=== PATIENT | female | born 1945 | race Caucasian/White ===

== ENCOUNTER → 2017-06-26 | Outpatient (CLI) | payer MEDICARE, OTHER ==
[~2017-06-26] MED LIST: ACET325 PO; ALBU90OI INH; ALBU90OI6 INH; AMIT25 PO; ATEN25 PO; CALCAVITDA PO; CEFP200 PO; CODGUAEL PO; CYCL10 PO; DESL5 PO; DESLORATADINE PO; ERGO400 PO; ERYT.5TO BOTHEYES; Excedrin Extra1 EACH PO; FEXO60 PO; FLUT44OIA IH; FLUTICASONE 50MCG; GABA300 PO; GLIP10 PO; GLIP5 PO; HYDACE5 PO; HYDACE5325; HYDCHL25 PO; INSULANPEN SC; LEVFLO250 PO; LISHYD1012; LISHYD1012 PO; LOPE2C PO; LOVA20 PO; MELA3 PO; METF500 PO; MULVITA PO; NORFLEX PO; PANT40 PO; PIOG15 PO; PIOG45 PO; POLY500; POTA8 PO; QVAR7.3 G1 IH; ROPI1 PO; Rutin500 MG PO; SACC250C PO; SITA100T2; SITA100T2 PO; SULI150 PO; TOLT4 PO; Zithromax250 MG PO; [UNRECOGNIZED DRUG - REMARK]; [UNRECOGNIZED DRUG - REMARK] INH
== END | disposition home or self-care (01) ==
LOC: LAB 08:20
DX: N39.0 Urinary tract infection, site not specified (principal)
CPT/HCPCS: 87077; 87086; 87186

== ENCOUNTER → 2017-07-09 | Outpatient (CLI) | payer MEDICARE, OTHER ==
[2017-07-09 11:22] LABS: Source, Urine Clean Catch
[2017-07-09 13:36] LABS: Bilirubin, Urine Neg (Neg); Blood, Urine Neg (Neg); Glucose Qualitative, Urine Neg (Neg); Ketones, Urine Neg (Neg); Leukocyte Esterase, Urine Neg (Neg); Nitrite, Urine Neg (Neg); Protein, Urine Neg (Neg); Specific Gravity, Urine 1.015 (1.003-1.022); Urobilinogen, Urine NORM (Normal); pH, Urine 6.5 (5.0-8.0)
[2017-07-09 13:58] LABS: Appearance, Urine Clear (Clear); Color, Urine Yellow (P-Yellow)
== END ==
LOC: LAB 11:10
PROVIDERS: Physician Assistant
DX: N39.0 Urinary tract infection, site not specified (principal)
CPT/HCPCS: 81003

== ENCOUNTER → 2017-08-14 | Outpatient (CLI) | payer MEDICARE | END | disposition home or self-care (01) | LOC: LAB SHORT 11:16 → PLD 11:16 | DX: C44.321 Squamous cell carcinoma of skin of nose (principal) | CPT/HCPCS: 88305 ==

== ENCOUNTER → 2018-01-22 | Outpatient (CLI) | payer MEDICARE ==
[2018-01-22 17:40] LABS: Appearance, Urine Hazy (Clear); Bilirubin, Urine Neg (Neg); Blood, Urine 3+ (Neg); Color, Urine Yellow (P-Yellow); Glucose Qualitative, Urine 4+ (Neg); Ketones, Urine Neg (Neg); Leukocyte Esterase, Urine 3+ (Neg); Nitrite, Urine Neg (Neg); Protein, Urine 2+ (Neg); Specific Gravity, Urine 1.015 (1.003-1.022); Urobilinogen, Urine NORM (Normal)
[2018-01-22 18:25] LABS: Squamous Epithelial Cells Few /hpf (Few); White Blood Cells, Urine 50-100 /hpf (0-5)
[2018-01-22 18:26] LABS: Bacteria Many /hpf
== END ==
LOC: LAB SHORT 17:00 → LAB 17:00
PROVIDERS: Nurse Practitioner Family
DX: R30.0 Dysuria (principal)
CPT/HCPCS: 81001; 87077; 87086; 87186

== ENCOUNTER 2018-07-04 12:52 | Emergency (ER) | payer MEDICARE, OTHER ==
[~2018-07-04] VITALS: Ht 160 cm; Wt 108.0 kg
[2018-07-04] MEDS ORDERED: BENZ100A PO (13:20)
== END 2018-07-04 13:39 | disposition home or self-care (01) ==
LOC: ER 12:52
DX: J11.1 Influenza due to unidentified influenza virus with other respiratory manifestations (principal); E11.9 Type 2 diabetes mellitus without complications; Z87.891 Personal history of nicotine dependence; Z79.899 Other long term (current) drug therapy; Z79.4 Long term (current) use of insulin
CPT/HCPCS: 99283; J1100

== ENCOUNTER 2018-10-05 08:19 | Emergency (ER) | payer MEDICARE, OTHER ==
[~2018-10-05] VITALS: Ht 160 cm; Wt 106.6 kg
[~2018-10-05 08:19] MED LIST changes: +BENZ100A PO; +ROPI.25 PO; -ROPI1 PO
[2018-10-05] MEDS ORDERED: NOVOLOG FL100 UNIT/1 (09:27)
[2018-10-05] MEDS ORDERED: MYRBETRIQ50 MG PO (09:27)
[2018-10-05] MEDS ORDERED: AMLO5 PO (09:27)
[2018-10-05] MEDS ORDERED: Flovent 110 MCG12 GM INH (09:28)
[2018-10-05] MEDS ORDERED: Calcium + Vita1 EACH PO (09:28)
[2018-10-05] MEDS ORDERED: Rutin500 MG PO (09:29)
[2018-10-05] MEDS ORDERED: Multivitamin1 EAC1 PO (09:29)
[2018-10-05] MEDS ORDERED: IBUP400 PO (10:55)
[2018-10-05] MEDS ORDERED: Cyclobenzaprine5 MG PO (10:55)
== END 2018-10-05 11:12 | disposition home or self-care (01) ==
LOC: ER 08:19
DX: M54.5 Low back pain (principal); G89.29 Other chronic pain; E11.9 Type 2 diabetes mellitus without complications; Z87.891 Personal history of nicotine dependence
CPT/HCPCS: 96372; 99283-25; J1885

== ENCOUNTER → 2018-11-03 | Outpatient (CLI) | payer MEDICARE, OTHER ==
[~2018-11-03] MED LIST changes: +AMLO10 PO; +AMLO5 PO; +Calcium + Vita1 EACH PO; +Cyclobenzaprine5 MG PO; +DETROL LA PO; +Flovent 110 MCG12 GM INH; +IBUP400 PO; +INSULIN NOVOLOG; +LACTOSE PO; +MAGNESIUM PO; +MYRBETRIQ50 MG PO; +Multivitamin1 EAC1 PO; +NOVOLOG FL100 UNIT/1; +Percocet 5-3251 EACH PO; +Tylenol325 MG PO; +ZESTORETIC 20-1 EACH PO
== END | disposition home or self-care (01) ==
LOC: LAB SHORT 10:10 → PLD 10:10
DX: D22.5 Melanocytic nevi of trunk (principal); D22.61 Melanocytic nevi of right upper limb, including shoulder
CPT/HCPCS: 88305

== ENCOUNTER → 2019-02-03 | Outpatient (CLI) | payer MEDICARE, OTHER ==
[2019-02-03 20:08] LABS: Creatinine, Urine Random 93.7 mg/dL (27.00-270.00)
[2019-02-03 20:11] LABS: Microalb/Creat Ratio UR, Rand 14.835 mg/g (0.000-30.000); Microalbumin, Random Urine 13.9 mg/L (0.000-20.000)
== END | disposition home or self-care (01) ==
LOC: LAB 17:35 → LAB SHORT 17:35
PROVIDERS: Nurse Practitioner Family
DX: E11.42 Type 2 diabetes mellitus with diabetic polyneuropathy (principal)
CPT/HCPCS: 82043; 82570

== ENCOUNTER 2019-02-09 14:41 | Observation (INO) | payer MEDICARE, OTHER ==
[~2019-02-09] VITALS: Ht 160 cm; Wt 104.9 kg
[~2019-02-09 14:41] MED LIST changes: -Percocet 5-3251 EACH PO; -Tylenol325 MG PO
--- NOTE | 2019-02-10 09:15 | NUR ---
Ambulatory in Day Surgery History, Chart, Medications and Allergies reviewed before start of procedure.Lungs clear T/O to Auscultation. Patient confirms NPO status and agrees with scheduled surgery. Patient reports completing Chlorhexadine shower X2 prior to admission to hospital.Surgical site prepped with 2% Chlorhexidine cloth wipe.
--- NOTE | 2019-02-11 | NUR ---
ASSUMING CARE OF PT AT THIS TIME. REPORT RECEIVED FROM RAMA HAMMER.
--- NOTE | 2019-02-11 04:26 | NUR ---
OWN CLOTHES.WILL TRY AGAIN LATER
--- NOTE | 2019-02-11 06:35 | NUR ---
SHIFT SUMMARY: PT POD#1 FOR LEFT FOOT AND ANKLE REPAIR. NON WEIGHT BEARING TO LLE. STANDING UP TO GET TO BSC WITH 1-2 MOD ASSIST. VOIDING WELL. PAIN MANAGED WITH PERCOCET PER EMAR. MEDICATED ONCE. BLOOD GLUCOSE >300. COVERED WITH LOW SS PER EMAR. SALINE LOCKED. PLAN FOR SNF AFTER DISCHARGE.
--- NOTE | 2019-02-11 17:38 | NUR ---
SHIFT SUMMARY PT POD 1. LLE IN SPLINT W/REHAN WRAP-C/D/I. WIGGLES TOES, CAP REFILL WNL. MEDICATED WITH 2 PERCOCET 5/325MG ONCE THIS SHIFT. NWB LLE, 1-2 ASSIST W/FWW TO BSC. UP WITH PT THIS SHIFT. PLAN IS TO DC HOME TOMORROW.
--- NOTE | 2019-02-12 04:51 | NUR ---
SHIFT SUMMARY: PT S/P L ANKLE/FOOT REPAIR. PAIN MANAGED WITH 1-2 PERCOCET PER EMAR. GETTING TO BSC WITH 1 ASSIST. VOIDING WELL. LAZARUS REG DIET. BG >300. COVERED WITH LOW SS AND METFORMIN PER EMAR. DENIES N/T. WIGGLES TOES. CAP REFILL WNL. POSSIBLE DISCHARGE TODAY.
--- NOTE | 2019-02-12 09:03 | NUR ---
02/12/19 0903 Purvi Ignacio VERIFICATIONS: EDIT STAFF.
--- NOTE | 2019-02-12 11:00 | NUR ---
BIOX 88% AT REST WHEN PHYSICAL THERAPY IN TO EVALUATE PATIENT, OXYGEN APPLIED AT 1 LITER
--- NOTE | 2019-02-12 11:10 | NUR ---
BIOX 95% ON 1 LITER
--- NOTE | 2019-02-12 17:48 | NUR ---
SUMMARY PATIENT REPORTS GOOD PAIN CONTROL WITH PO MEDS. PATIENT UP TO BEDSIDE COMMODE WITH ASSIST TO VOID. PATIENTS WILL BE IN IN THE MORNING TO WORK WITH PHYSICAL THERAPY. LAZARUS PO FOOD AND FLUID WITHOUT NAUSEA. PATIENT USING IS INDEPENDENTLY, DENIES SOB
[2019-02-13 04:54] LABS: BASOPHILS ABSOLUTE AUTO 0.01 K/mm3 (0.00-0.23); BASOPHILS PERCENT AUTO 0 % (0-2); EOSINOPHILS ABSOLUTE AUTO 0.05 K/mm3 (0.00-0.68); EOSINOPHILS PERCENT AUTO 1 % (0-6); Hematocrit 35.9 % (33.0-51.0); Hemoglobin 11.2 g/dL (11.5-16.0); IMMATURE GRAN ABSOLUTE AUTO 0.01 K/mm3 (0.00-0.10); IMMATURE GRAN PERCENT AUTO 0 % (0-1); LYMPHOCYTES ABSOLUTE AUTO 1.76 K/mm3 (0.84-5.20); LYMPHOCYTES PERCENT AUTO 30 % (21-46); MONOCYTES ABSOLUTE AUTO 0.77 K/mm3 (0.16-1.47); MONOCYTES PERCENT AUTO 13 % (4-13); Mean Corpuscular HGB 32.9 pg (26.0-34.0); Mean Corpuscular HGB Conc 31.2 g/dL (31.5-36.5); Mean Corpuscular Volume 106 fL (80-100); Mean Platelet Volume 8.9 fL (9.1-12.4); NEUTROPHILS ABSOLUTE AUTO 3.37 K/mm3 (1.96-9.15); NEUTROPHILS PERCENT AUTO 56 % (41-73); Platelet Count 191 K/mm3 (150-400); RDW Coefficient Variation 13.8 % (11.7-14.2); RDW Standard Deviation 53.2 fL (35.1-46.3); White Blood Cell Count 5.97 K/mm3 (4.00-11.30)
[2019-02-13] MEDS ORDERED: Tylenol325 MG PO (12:13)
[2019-02-13] MEDS ORDERED: Percocet 5-3251 EACH PO (12:18)
--- NOTE | 2019-02-13 13:00 | NUR ---
[facility] TRANSPORT HOME ARRANGED WITH [facility] TRANSPORT. SPOKE WITH DISPATCH AT [facility] REGARDING PT'S WEIGHT OF 104.9KG. [facility] WAS NOTIFIED THAT PT HAS 5 STEPS TO GET INTO HER HOME, AND WOULD NEED TO BE TRANSPORTED UP THOSE STEPS SHE IS UNABLE TO NAVIGATE THEM.
--- NOTE | 2019-02-13 14:35 | NUR ---
CLARIFIED WITH DR. DWYER THAT PT DOES NOT NEED BLOOD THINNER UPON DISCHARGE. DR. DWYER REPORTED PT DOES NOT NEED A BLOOD THINNER FOR HOME AT THIS TIME.
--- NOTE | 2019-02-13 16:57 | NUR ---
DISCHARGE PT PROVIDED WITH WRITTEN AND VERBAL DISCHARGE INSTRUCTIONS; SHE REPORTED UNDERSTANDING AFTER QUESTIONS WERE ANSWERED. SHE WAS PROVIDED WITH WRITTEN SCRIPTS. PT ALERT AND ORIENTED AT TIME OF TRANSPORT. TRANSPORTER WAS NOTIFIED OF THE PATIENTS WEIGHT AND THE 5 STEPS INTO HER HOME THAT SHE WOULD NEED TO BE LIFTED UP, PRIOR TO PT LEAVING.
== END 2019-02-13 16:50 | disposition home or self-care (01) ==
LOC: SURS 02-10 08:31 → PRE IP 02-10 08:31 → SURS 02-10 08:32 → PRE IP 02-10 10:30 → SURS 02-10 14:18
PROVIDERS: Internal Medicine; Podiatrist Foot & Ankle Surgery; ADMIT Family Medicine
PROC: 0SGJ04Z Fusion of Left Tarsal Joint with Internal Fixation Device, Open Approach (ICD-10-PCS; principal; 2019-02-10 10:30)
PROC: 0L8P0ZZ Division of Left Lower Leg Tendon, Open Approach (ICD-10-PCS; principal; 2019-02-10 10:30)
DX: M21.42 Flat foot [pes planus] (acquired), left foot (principal); M21.6X2 Other acquired deformities of left foot; E78.5 Hyperlipidemia, unspecified; E11.42 Type 2 diabetes mellitus with diabetic polyneuropathy; G25.81 Restless legs syndrome; E66.9 Obesity, unspecified; J45.909 Unspecified asthma, uncomplicated; Z79.899 Other long term (current) drug therapy; Z87.891 Personal history of nicotine dependence; Z88.8 Allergy status to other drugs, medicaments and biological substances
CPT/HCPCS: 36415; 71046; 82947; 85025; 94640; 94760; 96372; 96375; 97110; 97162; 97166; 97530; 97535; A9270; C1713; C1769; G0378; J0690; J1100; J1650; J1815; J2250; J2370; J2405; J2704; J3010; J7030; J7120

== ENCOUNTER → 2019-10-13 | Outpatient (CLI) | payer MEDICARE, OTHER ==
[~2019-10-13] MED LIST changes: +Percocet 5-3251 EACH PO; +Tylenol325 MG PO
== END | disposition home or self-care (01) ==
LOC: LAB SHORT 12:14 → LAB 12:14
DX: C44.41 Basal cell carcinoma of skin of scalp and neck (principal)
CPT/HCPCS: 88305

== ENCOUNTER → 2019-10-13 | Outpatient (CLI) | payer MEDICARE, OTHER | LOC: LAB SHORT 14:40 → LAB 14:40 | DX: A49.9 Bacterial infection, unspecified (principal) | CPT/HCPCS: 87070; 87077; 87186; 87205 ==

== ENCOUNTER → 2020-02-14 | Outpatient (CLI) | payer MEDICARE, OTHER ==
[2020-02-14 20:20] LABS: Creatinine, Urine Random 78.2 mg/dL (27.00-270.00)
[2020-02-14 20:22] LABS: Microalb/Creat Ratio UR, Rand 58.824 mg/g (0.000-30.000)
== END ==
LOC: LAB SHORT 15:58 → LAB 15:58
PROVIDERS: Nurse Practitioner Family
DX: E11.40 Type 2 diabetes mellitus with diabetic neuropathy, unspecified (principal)
CPT/HCPCS: 82043; 82570

== ENCOUNTER → 2020-05-07 | Outpatient (CLI) | payer MEDICARE, OTHER ==
[2020-05-07 13:13] LABS: BASOPHILS ABSOLUTE AUTO 0.03 K/mm3 (0.00-0.23); BASOPHILS PERCENT AUTO 0 % (0-2); EOSINOPHILS PERCENT AUTO 1 % (0-6); Hematocrit 41.4 % (33.0-51.0); IMMATURE GRAN ABSOLUTE AUTO 0.03 K/mm3 (0.00-0.10); IMMATURE GRAN PERCENT AUTO 0 % (0-1); LYMPHOCYTES ABSOLUTE AUTO 1.58 K/mm3 (0.84-5.20); LYMPHOCYTES PERCENT AUTO 17 % (21-46); MONOCYTES ABSOLUTE AUTO 0.76 K/mm3 (0.16-1.47); MONOCYTES PERCENT AUTO 8 % (4-13); Mean Corpuscular HGB 32.9 pg (26.0-34.0); Mean Corpuscular HGB Conc 31.4 g/dL (31.5-36.5); Mean Corpuscular Volume 105 fL (80-100); Mean Platelet Volume 9.2 fL (9.1-12.4); NEUTROPHILS ABSOLUTE AUTO 6.71 K/mm3 (1.96-9.15); NEUTROPHILS PERCENT AUTO 73 % (41-73); Platelet Count 269 K/mm3 (150-400); RDW Coefficient Variation 14.5 % (11.7-14.2); RDW Standard Deviation 56.3 fL (35.1-46.3); Red Blood Cell Count 3.95 M/mm3 (3.80-5.20); White Blood Cell Count 9.21 K/mm3 (4.00-11.30)
[2020-05-07 13:27] LABS: Alanine Aminotransfer (ALT/SGP 20 U/L (12-78); Albumin, Blood 3.2 g/dL (3.4-5.0); Albumin/Globulin Ratio 0.6 (0.8-1.8); Alk Phos 94 U/L (50-136); Anion Gap 7 mmol/L (6-16); Aspartate Aminotrans (AST/SGOT 14 U/L (12-37); Bilirubin, Total 0.4 mg/dL (0.1-1.0); Blood Urea Nitrogen 23 mg/dL (8-24); Bun/Creatinine Ratio 29.8 (12.0-20.0); CO2, Blood 27 mmol/L (21-32); Chloride, Blood 103 mmol/L (98-108); Creatinine, Blood 0.77 mg/dL (0.40-1.00); Glomerular Filtration Rate >60 (60-); Glucose, Blood 158 mg/dL (70-99); Potassium, Blood 3.9 mmol/L (3.5-5.5); Sodium, Blood 137 mmol/L (136-145); Total Protein, Blood 8.2 g/dL (6.4-8.2)
== END | disposition home or self-care (01) ==
LOC: LAB 11:50 → LAB SHORT 11:50
PROVIDERS: Family Medicine
DX: R10.9 Unspecified abdominal pain (principal)
CPT/HCPCS: 80053; 83690; 85025; 87077; 87086; 87186

== ENCOUNTER 2020-07-02 00:31 | Emergency (ER) | payer MEDICARE, OTHER ==
[~2020-07-02] VITALS: Ht 160 cm; Wt 106.1 kg
== END 2020-07-02 01:09 | disposition home or self-care (01) ==
LOC: ER 00:31
DX: T15.91XA Foreign body on external eye, part unspecified, right eye, initial encounter (principal); E11.9 Type 2 diabetes mellitus without complications; Z79.4 Long term (current) use of insulin; Z79.899 Other long term (current) drug therapy; Z87.891 Personal history of nicotine dependence
CPT/HCPCS: 99282

== ENCOUNTER → 2020-10-04 | Outpatient (CLI) | payer MEDICARE, OTHER | END | disposition home or self-care (01) | LOC: LAB 11:15 → LAB SHORT 11:15 | DX: D22.71 Melanocytic nevi of right lower limb, including hip (principal); D48.5 Neoplasm of uncertain behavior of skin | CPT/HCPCS: 88305 ==

== ENCOUNTER → 2020-10-09 | Outpatient (CLI) | payer MEDICARE, OTHER | END | disposition home or self-care (01) | LOC: LAB SHORT 14:54 → LAB 14:54 | DX: R30.0 Dysuria (principal) | CPT/HCPCS: 87077; 87086; 87186 ==

== ENCOUNTER → 2021-03-19 | Outpatient (CLI) | payer MEDICARE, OTHER ==
[2021-03-19 15:30] LABS: Source, Urine Clean Catch
[2021-03-19 17:26] LABS: Bilirubin, Urine Neg (Neg); Blood, Urine 1+ (Neg); Glucose Qualitative, Urine Neg (Neg); Ketones, Urine Neg (Neg); Leukocyte Esterase, Urine 3+ (Neg); Nitrite, Urine Neg (Neg); Protein, Urine Neg (Neg); Urobilinogen, Urine NORM (Normal)
[2021-03-19 17:51] LABS: Appearance, Urine Cloudy (Clear); Color, Urine Pale Yellow (P-Yellow)
[2021-03-19 17:54] LABS: Squamous Epithelial Cells Few /hpf (Few)
[2021-03-19 17:57] LABS: Bacteria Many /hpf; White Blood Cells, Urine 25-50 /hpf (0-5)
[2021-03-19 17:58] LABS: Calcium Oxalate Crystals Few /hpf
== END | disposition home or self-care (01) ==
LOC: LAB SHORT 15:26 → LAB 15:26
PROVIDERS: Student in an Organized Health Care Education/Training Program
DX: R30.0 Dysuria (principal)
CPT/HCPCS: 81001; 87077; 87086; 87186

== ENCOUNTER → 2021-11-06 | Outpatient (CLI) | payer MEDICARE, OTHER | END | disposition home or self-care (01) | LOC: LAB SHORT 09:28 → LAB 09:28 | DX: R30.0 Dysuria (principal) | CPT/HCPCS: 87077; 87086; 87186 ==

== ENCOUNTER → 2021-11-19 | Outpatient (CLI) | payer MEDICARE, OTHER | LOC: EDSTATUS 09:30 → LAB 13:30 → LAB SHORT 13:30 | DX: R30.0 Dysuria (principal) | CPT/HCPCS: 87077; 87086; 87186 ==

== ENCOUNTER → 2022-01-14 | Outpatient (CLI) | payer MEDICARE, OTHER ==
[2022-01-17 13:10] LABS: M-SPIKE, % 42.1 % (Not Observed); M-SPIKE, MG/24 HR 48 mg/24 hr (Not Observed); PROTEIN,TOTAL,URINE 6.4 mg/dL (Not Estab.)
== END | disposition home or self-care (01) ==
LOC: LAB 10:40 → LAB SHORT 10:40
PROVIDERS: Internal Medicine Hematology & Oncology
DX: D47.2 Monoclonal gammopathy (principal)
CPT/HCPCS: 81050

== ENCOUNTER 2022-03-03 02:06 | Emergency (ER) | payer MEDICARE, OTHER ==
[~2022-03-03] VITALS: Ht 160 cm; Wt 95.2 kg
== END 2022-03-03 07:22 | disposition home or self-care (01) ==
LOC: ER 02:06
DX: S02.2XXA Fracture of nasal bones, initial encounter for closed fracture (principal); S00.83XA Contusion of other part of head, initial encounter; S80.02XA Contusion of left knee, initial encounter; S80.01XA Contusion of right knee, initial encounter; E11.9 Type 2 diabetes mellitus without complications; Z79.899 Other long term (current) drug therapy; Z79.4 Long term (current) use of insulin; Z87.891 Personal history of nicotine dependence; W18.30XA Fall on same level, unspecified, initial encounter
CPT/HCPCS: 70486; 73562-LT; 73562-RT; 96372; 99284-25; A9270; J1885

== ENCOUNTER 2022-03-31 04:55 | Inpatient (IN) | payer MEDICARE, OTHER ==
[~2022-03-31] VITALS: Ht 160 cm; Wt 97.1 kg
[2022-03-31 05:38] LABS: BASOPHILS ABSOLUTE AUTO 0.02 K/mm3 (0.00-0.23); BASOPHILS PERCENT AUTO 0 % (0-2); EOSINOPHILS ABSOLUTE AUTO 0.02 K/mm3 (0.00-0.68); EOSINOPHILS PERCENT AUTO 0 % (0-6); Hematocrit 40.6 % (33.0-51.0); Hemoglobin 13.2 g/dL (11.5-16.0); IMMATURE GRAN PERCENT AUTO 1 % (0-1); LYMPHOCYTES PERCENT AUTO 24 % (21-46); MONOCYTES ABSOLUTE AUTO 1.32 K/mm3 (0.16-1.47); MONOCYTES PERCENT AUTO 11 % (4-13); Mean Corpuscular HGB 33.3 pg (26.0-34.0); Mean Corpuscular HGB Conc 32.5 g/dL (31.5-36.5); Mean Corpuscular Volume 103 fL (80-100); NEUTROPHILS ABSOLUTE AUTO 7.47 K/mm3 (1.96-9.15); NEUTROPHILS PERCENT AUTO 64 % (41-73); NRBC ABSOLUTE 0.17 K/mm3 (0.00-0.02); NRBC Auto 1.4 /100 WBC (0.0-0.2); Platelet Count 260 K/mm3 (150-400); RDW Coefficient Variation 15.9 % (11.7-14.2); RDW Standard Deviation 60.3 fL (35.1-46.3); Red Blood Cell Count 3.96 M/mm3 (3.80-5.20); White Blood Cell Count 11.73 K/mm3 (4.00-11.30)
[2022-03-31 05:49] LABS: Magnesium, Blood 1.9 mg/dL (1.6-2.4)
[2022-03-31 05:50] LABS: Albumin, Blood 2.9 g/dL (3.4-5.0); Albumin/Globulin Ratio 0.7 (0.8-1.8); Bilirubin, Total 0.3 mg/dL (0.1-1.0); Bun/Creatinine Ratio 25.9 (12.0-20.0); Calcium, Blood 9.5 mg/dL (8.5-10.1); Creatinine, Blood 0.96 mg/dL (0.40-1.00); Total Protein, Blood 6.9 g/dL (6.4-8.2)
[2022-03-31 06:23] LABS: International Normalized Ratio 0.93; Prothrombin Time Results 9.8 Sec (9.7-11.5)
[2022-03-31 08:38] LABS: Source, Urine Clean Catch
[2022-03-31 08:50] LABS: Bilirubin, Urine Neg (Neg); Blood, Urine Neg (Neg); Glucose Qualitative, Urine Neg (Neg); Ketones, Urine Neg (Neg); Leukocyte Esterase, Urine 2+ (Neg); Nitrite, Urine Pos (Neg); Protein, Urine Neg (Neg); Specific Gravity, Urine 1.015 (1.003-1.022); Urobilinogen, Urine NORM (Normal)
[2022-03-31 08:58] LABS: Appearance, Urine Hazy (Clear); Bacteria Mod /hpf; Color, Urine Yellow (P-Yellow); Red Blood Cells, Urine 0-2 /hpf (0-2); Squamous Epithelial Cells Rare /hpf (Few)
--- NOTE | 2022-03-31 11:28 | NUR ---
PT ARRIVED TO PCU AT 1055 TRANSPORTED BY ED RN TO BEDSIDE ACCOMPANIED BY . PT IS ALERT AND ORIENTED. DENIES PAIN. C/O BEING TIRED. SKIN CHECK COMPLETED, BRUISING NOTED TO BLE AND FACE. BANDAID TO NOSE. PT REPORTS A FALL AT HOME 2 WEEKS AGO DUE TO DIZZINESS. SHE SUSTAINED A NASAL FX AND WAS EVALUATED IN ED. PT DENIES ANY OTHER FRACTURES OR INJURIES DUE TO FALL. PT HAD C/O ABD PAIN THAT BROUGHT HER TO ER. ABDOMINAL CT COMPLETED. HR ELEVATED IN ER UPON ARRIVAL, DILTIAZEM GIVEN, PT NOW IN AFIB 100-110, NO KNOWN HISTORY OF ATRIAL FIBRILLATION PER PT. SBP 108 AFTER 3 LITERS IVF IN ER. PIVX1 TO LEFT WRIST, FLUSHES WELL. RN TO CONTINUE TO MONITOR.
[2022-03-31] MEDS ORDERED: Prinivil10 MG PO (14:59)
--- NOTE | 2022-03-31 18:42 | NUR ---
END OF SHIFT SUMMARY PT ADMITTED TO PCU AT 1055. NEURO: ALERT AND ORIENTED, PLEASANT CARDIAC: ATRIAL FIB/FLUTTER, THIS IS NEW FOR PT. SBP 90-110. RESP: RA WHILE AWAKE, 1L NC WHILE ASLEEP. PT HAS HX OF SARAH, USES BIPAP AT HOME, HAS NOT BEEN ABLE TO USE DUE TO NASAL FX 2 WEEKS AGO GI: TOLERATES DIET WELL, APETITE AT BASELINE PER PT. DENIES N/V. DENIES ABD PAIN AT THIS TIME. : VOIDS WITHOUT DIFFICULTY. CLEAR YELLOW URNE. SKIN: INTACT, BRUISING NOTED TO BLE AND FACE DUE TO FALL 2 WEEKS AGO. IV: PIV X1. SL, FLUSHES WELL. PSYCH: WENT HOME AFTER PT ADMITTED TO PCU. CONTACT PHONE NUMBER ON THE BOARD. ADMISSION ASSESSMENT COMPLETED. SPOKE WITH DR. EWING AFTER MED REC TO MAKE CHANGES TO MEDS PER PT REPORT. VITAMINS D/C'D. HOLD PERAMETERS GIVEN FOR LOPRESSOR. UPDATED MD ON PT CURRENT CONDITION. NO IVF AT THIS TIME DUE TO PT HAS GOOD ORAL INTAKE PER MD. REPORT TO BE GIVEN TO ONCOMING RN.
--- NOTE | 2022-03-31 19:41 | NUR ---
ASSUMED CARE. AOX3. ABLE TO MAKE NEEDS KNOWN. DENIES ANY PAIN OR DISCOMFORT. PLAYING ON TABLET. BRUSING NOTED TO LEFT SIDE OF FACE FROM FALL AT HOME. NORMALLY WEARS CPAP AT NIGHT BUT UNABLE TO DUE TO BROKEN NOSE. WILL USE NC TONIGHT IF INDICATED. SATS 100% ON RA. SINUS ON MONITOR WITH RATE IN THE 70'S. DENIES ANY CHEST PAIN. SBA TO BSC WHEN NEEDED. DENIES ANY NEEDS AT THIS TIME, CALL LIGHT IS IN REACH.
--- NOTE | 2022-03-31 22:17 | NUR ---
PT GOT UP TO BATHROOM, HR JUMPED UP TO 120-130'S AFIB, ONCE BACK IN BED HER RATE DROPPED DOWN TO 110'S. MINIMAL SOB NOTED. BP ON THE SOFT SIDE IN THE 80'S, MAP IS >65.
[2022-04-01 04:59] LABS: BASOPHILS ABSOLUTE AUTO 0.02 K/mm3 (0.00-0.23); BASOPHILS PERCENT AUTO 0 % (0-2); EOSINOPHILS ABSOLUTE AUTO 0.04 K/mm3 (0.00-0.68); EOSINOPHILS PERCENT AUTO 1 % (0-6); Hematocrit 35.2 % (33.0-51.0); IMMATURE GRAN ABSOLUTE AUTO 0.04 K/mm3 (0.00-0.10); IMMATURE GRAN PERCENT AUTO 1 % (0-1); LYMPHOCYTES ABSOLUTE AUTO 2.25 K/mm3 (0.84-5.20); LYMPHOCYTES PERCENT AUTO 32 % (21-46); MONOCYTES ABSOLUTE AUTO 0.75 K/mm3 (0.16-1.47); MONOCYTES PERCENT AUTO 11 % (4-13); Mean Corpuscular HGB 32.4 pg (26.0-34.0); Mean Corpuscular HGB Conc 31.3 g/dL (31.5-36.5); Mean Corpuscular Volume 104 fL (80-100); Mean Platelet Volume 9.3 fL (9.1-12.4); NEUTROPHILS ABSOLUTE AUTO 3.96 K/mm3 (1.96-9.15); NEUTROPHILS PERCENT AUTO 56 % (41-73); NRBC ABSOLUTE 0.34 K/mm3 (0.00-0.02); NRBC Auto 4.8 /100 WBC (0.0-0.2); Platelet Count 195 K/mm3 (150-400); RDW Coefficient Variation 15.9 % (11.7-14.2); RDW Standard Deviation 60.6 fL (35.1-46.3); Red Blood Cell Count 3.39 M/mm3 (3.80-5.20); White Blood Cell Count 7.06 K/mm3 (4.00-11.30)
[2022-04-01 05:32] LABS: Albumin, Blood 2.3 g/dL (3.4-5.0); Albumin/Globulin Ratio 0.7 (0.8-1.8); Bilirubin, Total 0.3 mg/dL (0.1-1.0); Bun/Creatinine Ratio 20.6 (12.0-20.0); Calcium, Blood 8.8 mg/dL (8.5-10.1); Creatinine, Blood 0.68 mg/dL (0.40-1.00); Globulin, Blood 3.2 g/dL (2.2-4.0); Potassium, Blood 4.2 mmol/L (3.5-5.5); Total Protein, Blood 5.5 g/dL (6.4-8.2)
--- NOTE | 2022-04-01 05:42 | NUR ---
SHIFT SUMMARY: AOX3, ABLE TO MAKE NEEDS KNOWN. USES CALL LIGHT APPROPRITALY. DENIES PAIN OR DISCOMFORT. SBA TO BATHROOM. LS DIM IN BASES, MILD DYSPNEA WITH EXERTION. AFIB/AFLUTTER WITH RATE OF 80-110. 120-130 WITH ACTIVITY THAT RESOLVES WHEN SHE IS BACK IN BED. DENIES CHEST PAIN OR PALPITATIONS. MULTIPLE PVC'S ON MONITOR. DID NOT TAKE METOPROLOL DUE TO SOFT BP. RANGE 90-110'S WITH STABLE MAP >65. SWITCHED BP TO MANUAL JUST NOW. SATS >90% ON RA WHILE AWAKE AND 2L NC AT NOC WHILE ASLEEP. APPETITE FAIR, LAST BM 03/29. EDEMA STILL PRESENT IN BLE, MULTIPLE BRUISING BLE FROM FALL AT HOME. NO OTHER CHANGES TO NOTE THIS SHIFT, CALL LIGHT IN REACH.
[2022-04-01] MEDS ORDERED: ASPI81CH PO (15:21)
--- NOTE | 2022-04-01 15:50 | NUR ---
RN FAXED PRESCRIPTIONS NEEDED TO [facility], PT'S PREFERRED PHARM. CONFIRMATION RECEIVED AND PLACED IN PT CHART.
--- NOTE | 2022-04-01 16:00 | NUR ---
SHIFT SUMMARY PHONE CALL WITH DR. EWING - PT IS PROGRESSING TOWARDWS DISCHARGE GOALS. SHE HAS WORKED WITH PT/OT AND REMAINED ON ROOM AIR. DENIES CHEST PAIN OR SOB. HEART RATE AFLUTTER TO SINUS 60'S TO 90'S. VITAL SIGNS STABLE, LABS IMPROVING. DR. EWING TO WRITE DISCHARGE ORDERS. PT IS EAGER TO DISCHARGE TO CONTINUE CHEMOTHERAPY TREATMENT SCHEDULE AT [facility], WHICH OCCURS WEEKLY ON FRIDAY.
--- NOTE | 2022-04-01 17:09 | NUR ---
DISCHARGE PT WAS DISCHARGED TO CARE OF , AND TRANSPORTED VIA PRIVATE VEHICLE. IV REMOVED, TELEMETRY REMOVED. [facility] NOTIFIED OF DISCHARGE. PERSONAL BELONGINGS RETURNED TO PT. DISCHARGE INSTRUCTIONS REVIEWED WITH PT, NO FURTHER QUESTIONS AT THIS TIME. PT WAS WHEELED OUT OF HOSPITAL PROPELLED BY PRINCIPAL TECHNICAL WRITER. PT TOLERATED PROCEDURE WELL.
== END 2022-04-01 17:00 | disposition home or self-care (01) | DRG 872 ==
LOC: ER 04:55 → PCU 04:56
PROVIDERS: Emergency Medicine; ADMIT Student in an Organized Health Care Education/Training Program
DX: A41.51 Sepsis due to Escherichia coli [E. coli] (principal); N39.0 Urinary tract infection, site not specified; I48.92 Unspecified atrial flutter; C96.9 Malignant neoplasm of lymphoid, hematopoietic and related tissue, unspecified; E87.20 Acidosis, unspecified; R79.89 Other specified abnormal findings of blood chemistry; E11.42 Type 2 diabetes mellitus with diabetic polyneuropathy; I10 Essential (primary) hypertension; E78.00 Pure hypercholesterolemia, unspecified; G25.81 Restless legs syndrome; Z98.890 Other specified postprocedural states; Z92.21 Personal history of antineoplastic chemotherapy; Z98.1 Arthrodesis status; Z79.899 Other long term (current) drug therapy; Z79.84 Long term (current) use of oral hypoglycemic drugs; Z79.4 Long term (current) use of insulin; Z79.811 Long term (current) use of aromatase inhibitors; Z79.52 Long term (current) use of systemic steroids; Z79.891 Long term (current) use of opiate analgesic; Z79.51 Long term (current) use of inhaled steroids; Z87.891 Personal history of nicotine dependence
CPT/HCPCS: 36415; 71046; 74177; 80053; 81001; 82947; 83605; 83690; 83735; 83880; 84484; 85025; 85610; 87040; 87077; 87086; 87186; 93005; 93010; 93306; 93356; 94640; 94664; 94762; 96361; 96365; 96366; 96367; 96372; 96375; 97116; 97162; 97166; 97530; 97535; 99285-25; A9270; G0378; J0696; J1650; J1815; J2405; J3475; J7030; J7120; Q9967

== ENCOUNTER 2022-05-05 12:50 | Emergency (ER) | payer MEDICARE, OTHER ==
[~2022-05-05] VITALS: Ht 157.5 cm; Wt 93.4 kg
[~2022-05-05 12:50] MED LIST changes: +ASPI81CH PO; +Prinivil10 MG PO
[2022-05-05 13:29] LABS: BASOPHILS ABSOLUTE AUTO 0.01 K/mm3 (0.00-0.23); BASOPHILS PERCENT AUTO 0 % (0-2); EOSINOPHILS ABSOLUTE AUTO 0.04 K/mm3 (0.00-0.68); EOSINOPHILS PERCENT AUTO 0 % (0-6); Hematocrit 40.1 % (33.0-51.0); Hemoglobin 13.3 g/dL (11.5-16.0); IMMATURE GRAN ABSOLUTE AUTO 0.09 K/mm3 (0.00-0.10); IMMATURE GRAN PERCENT AUTO 1 % (0-1); LYMPHOCYTES ABSOLUTE AUTO 2.52 K/mm3 (0.84-5.20); LYMPHOCYTES PERCENT AUTO 23 % (21-46); MONOCYTES ABSOLUTE AUTO 1.27 K/mm3 (0.16-1.47); MONOCYTES PERCENT AUTO 12 % (4-13); Mean Corpuscular HGB 33.3 pg (26.0-34.0); Mean Corpuscular HGB Conc 33.2 g/dL (31.5-36.5); Mean Corpuscular Volume 100 fL (80-100); Mean Platelet Volume 10.3 fL (9.1-12.4); NEUTROPHILS ABSOLUTE AUTO 7.03 K/mm3 (1.96-9.15); NEUTROPHILS PERCENT AUTO 64 % (41-73); NRBC ABSOLUTE 0.08 K/mm3 (0.00-0.02); NRBC Auto 0.7 /100 WBC (0.0-0.2); Platelet Count 138 K/mm3 (150-400); RDW Coefficient Variation 15.3 % (11.7-14.2); RDW Standard Deviation 56.7 fL (35.1-46.3); White Blood Cell Count 10.96 K/mm3 (4.00-11.30)
[2022-05-05 13:39] LABS: Source, Urine Clean Catch
[2022-05-05 13:48] LABS: Appearance, Urine Clear (Clear); Bilirubin, Urine Neg (Neg); Blood, Urine Neg (Neg); Color, Urine Yellow (P-Yellow); Glucose Qualitative, Urine Neg (Neg); Ketones, Urine Neg (Neg); Leukocyte Esterase, Urine Neg (Neg); Nitrite, Urine Neg (Neg); Protein, Urine 1+ (Neg); Urobilinogen, Urine NORM (Normal)
[2022-05-05 14:06] LABS: Albumin/Globulin Ratio 0.8 (0.8-1.8); Bilirubin, Total 0.4 mg/dL (0.1-1.0); Bun/Creatinine Ratio 32.2 (12.0-20.0); Calcium, Blood 9.5 mg/dL (8.5-10.1); Creatinine, Blood 0.96 mg/dL (0.40-1.00); Globulin, Blood 3.6 g/dL (2.2-4.0); Potassium, Blood 4.2 mmol/L (3.5-5.5); Total Protein, Blood 6.6 g/dL (6.4-8.2)
[2022-05-05] MEDS ORDERED: SIME80CH PO (16:28)
== END 2022-05-05 16:43 | disposition home or self-care (01) ==
LOC: ER 12:50
PROVIDERS: Physician Assistant
DX: R10.32 Left lower quadrant pain (principal); R14.1 Gas pain; I10 Essential (primary) hypertension; E78.5 Hyperlipidemia, unspecified; C79.52 Secondary malignant neoplasm of bone marrow; Z79.899 Other long term (current) drug therapy; Z79.4 Long term (current) use of insulin; Z79.82 Long term (current) use of aspirin; E11.40 Type 2 diabetes mellitus with diabetic neuropathy, unspecified; Z87.891 Personal history of nicotine dependence
CPT/HCPCS: 36415; 74177; 80053; 85025; A9270; Q9967